=== PATIENT | male | born 1975 | race Caucasian/White ===

== ENCOUNTER → 2025-03-31 10:49 | Outpatient (REF) | payer BC, MEDICARE, SELFPAY | LOC: PAVMRI 10:49 | PROVIDERS: ATTENDING PHYSICIAN Internal Medicine Gastroenterology; FAMILY PHYSICIAN Family Medicine | DX: R63.4 Abnormal weight loss (principal); R63.0 Anorexia; R68.81 Early satiety; R10.13 Epigastric pain | CPT/HCPCS: 74183; A9575 ==